=== PATIENT | female | born 1965 | race Caucasian/White ===

== ENCOUNTER 2020-03-07 14:03 | Emergency (ER) | payer MEDICARE ==
[~2020-03-07] VITALS: Ht 157.5 cm; Wt 59.0 kg
[~2020-03-07 14:03] MED LIST: BACTRIM DS TAB1 EACH PO; FLOMAX0.4 MG PO; GABAPENTIN100 MG PO; LEVOTHYROXINE0.2 M1 PO; NORCO 10-325 T1 EACH PO; PERCOCET 10-321 EACH PO; XANAX1 MG PO; ZOLOFT50 MG PO
[2020-03-07] MEDS ORDERED: CARVEDILOL12.5 MG PO (14:14)
[2020-03-07] MEDS ORDERED: NORVASC 2.5 MG2.5 M1 PO (14:15)
[2020-03-07] MEDS ORDERED: ALBUTEROL2.5 MG/0.1 INH (14:15)
[2020-03-07] MEDS ORDERED: HYDROXYZINE HCL25 M2 PO (14:15)
[2020-03-07] MEDS ORDERED: VOLTAREN GEL 1100 G1 TOP (16:10)
[2020-03-07] MEDS ORDERED: FLEXERIL PO (16:10)
[2020-03-07 16:21] VITALS: BP 156/73
== END 2020-03-07 16:21 | disposition home or self-care (01) ==
LOC: M.ERS 14:03
DX: S33.5XXA Sprain of ligaments of lumbar spine, initial encounter (principal); S29.012A Strain of muscle and tendon of back wall of thorax, initial encounter; I10 Essential (primary) hypertension; Z90.710 Acquired absence of both cervix and uterus; Z79.899 Other long term (current) drug therapy; X58.XXXA Exposure to other specified factors, initial encounter; Y93.89 Activity, other specified; Y92.89 Other specified places as the place of occurrence of the external cause; Y99.8 Other external cause status

== ENCOUNTER 2020-12-14 22:50 | Observation (INO) | payer OTHER, MEDICAID ==
[~2020-12-14] VITALS: Ht 157.5 cm; Wt 53.6 kg
[~2020-12-14 22:50] MED LIST changes: +ALBUTEROL2.5 MG/0.1 INH; +CARVEDILOL12.5 MG PO; +FLEXERIL PO; +HYDROXYZINE HCL25 M2 PO; -LEVOTHYROXINE0.2 M1 PO; +NORVASC 2.5 MG2.5 M1 PO; +SYNTHROID200 MCG PO; +VOLTAREN GEL 1100 G1 TOP
[2020-12-14 23:10] VITALS: BP 207/105
[2020-12-15 00:17] LABS: ABSOLUTE BASOPHILS 0.1 thou/uL (0.0-0.2); ABSOLUTE EOSINOPHILS 0.3 thou/uL (0.0-0.7); ABSOLUTE LYMPHOCYTES 1.4 thou/uL (0.8-5.3); ABSOLUTE MONOCYTES 0.5 thou/uL (0.0-1.2); ABSOLUTE NEUTROPHILS 3.5 thou/uL (1.6-8.1); BASOPHILS 1.1 %; EOSINOPHILS 5.3 %; HEMATOCRIT 34.7 % (37.0-47.0); LYMPHOCYTES 24.1 %; MCH 33.1 pg (26.0-34.0); MCHC 34.6 g/dL (28.0-37.0); MCV 95.6 fL (80.0-100.0); MONOCYTES 8.7 %; MPV 7.8 fl. (7.2-11.1); NUCLEATED RBCS 0 /100WBC; PLATELET COUNT* 254 thou/uL (150-400); POLYS 60.8 %; RBC 3.63 mil/uL (4.20-5.00); RDW-CV 13.2 % (10.5-14.5); WBC 5.8 thou/uL (4.0-11.0)
[2020-12-15 00:22] LABS: CALCIUM 9.4 mg/dL (8.5-10.1); CREATININE 7.1 mg/dL (0.6-1.3); POTASSIUM 4.4 mmol/L (3.5-5.1)
[2020-12-15 00:25] LABS: ALBUMIN 3.5 g/dL (3.4-5.0); MAGNESIUM 2.5 mg/dL (1.8-2.4); TOTAL BILIRUBIN 0.4 mg/dL (<0.1-1.0)
--- NOTE | 2020-12-15 00:30 | NUR ---
PATIENT APPEARS ANXIOUS SAYS "I CAN'T BREATHE" "I'M HOT" "I NEED A FAN" "I CAN'T STAY IN BED" "I NEED A WET TOWEL" "I'M COLD CAN I HAVE A BLANKET"--DR WALTER NOTIFIED "O" NOTED
[2020-12-15] MEDS ORDERED: DOXYCYCLINE 10100 MG PO (00:54)
[2020-12-15 01:28] LABS: APTT 27.7 Seconds (25.0-31.3); INR 0.9; PROTIME 10.1 Seconds (9.20-11.50)
[2020-12-15 05:05] VITALS: BP 156/76
[2020-12-15 05:40] VITALS: BP 138/68
[2020-12-15 06:05] VITALS: BP 138/68
--- NOTE | 2020-12-15 06:25 | NUR ---
PT ADMIT TO ROOM 208. UP WITH ASSIST. ALERT ORIENTED X 4. TECHNOLOGY APPLICATIONS CONSULTANT TRACING SR. HEPARIN QTT INFUSING AT 647 UNITS/HR TO RAC. L AV FISTULA +THRILL+BRUIT. ORIENTED TO ROOM.
[2020-12-15 08:00] VITALS: BP 161/89
--- NOTE | 2020-12-15 09:52 | EKG ---
[place] [address] ELECTROCARDIOGRAM REPORT Name: ACMILLE TURNER Room: [address]#: [id number] Admission: 12/15/20 Attend Phys: Peter Casillas, Discharge: Date of : 67 Date of Service: 12/14/20 2326 Report #: [id number] THIS REPORT FOR: //name// [facility] ED Test Date: 2020-12-14 Test Time: 23:26:07 Pat Name: CAMILLE TURNER Department: Room: [facility] Gender: F Scale Clerk: [place] : 1965 Requested By: Evelyn Ansari Order Number: [id number] MD: Sanjeev Clarke Measurements Intervals [place] Rate: 115 P: 75 [place]: 158 QRS: 35 QRSD: 77 T: 79 QT: 331 QTc: 458 Interpretive Statements Sinus tachycardia Left ventricular hypertrophy Probable anterior infarct, old Baseline wander in lead(s) I,II,III,aVR,aVL,V1,V2,V4 No previous ECG available for comparison Electronically Signed On 12-15-2020 9:51:53 CDT by Sanjeev Clarke [email or web address] <ELECTRONICALLY SIGNED> By: Sanjeev Clarke MD, FAC 12/15/20 0951 2326 2326 Sanjeev Clarke MD, FAC /EPI
--- NOTE | 2020-12-15 09:52 | EKG ---
[place] [address] ELECTROCARDIOGRAM REPORT Name: CAMILLE TURNER Room: [address]#: [id number] Admission: 12/15/20 Attend Phys: Peter Casillas, Discharge: Date of : 67 Date of Service: 12/15/20 0200 Report #: [id number] THIS REPORT FOR: //name// [facility] ED Test Date: 2020-12-15 Test Time: 02:00:23 Pat Name: CAMILLE TURNER Department: Room: [facility] Gender: F Finish Molder: [place] : 1965 Requested By: Evelyn Ansari Order Number: [id number] MD: Sanjeev Clarke Measurements Intervals [place] Rate: 82 P: 55 [place]: 149 QRS: 9 QRSD: 82 T: 82 QT: 423 QTc: 494 Interpretive Statements Sinus rhythm Left ventricular hypertrophy Anterior infarct, old Compared to ECG 12/14/2020 23:26:07 Sinus tachycardia no longer present Myocardial infarct finding still present Electronically Signed On 12-15-2020 9:52:42 CDT by Sanjeev Clarke [email or web address] <ELECTRONICALLY SIGNED> By: Sanjeev Clarke MD, [facility] 12/15/2052 9 9 Sanjeev Clarke MD, FAC /EPI
--- NOTE | 2020-12-15 10:40 | NUR ---
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 PT INDICATED SHE HAS NO DME. HAS O2 APPLIED, NOT HOME O2. PT INDICATED SHE GOES TO [facility] ON [address] ON AT 1030. PT STATED SHE DRIVES HERSELF TO DIALYSIS. PT DENIES HH OR SNF HH/CURRENT. PER DR GILBERT, NEPHROLOGY CONSULT. PT TO BE DIALYZED TODAY.CLINCIALS AND FLOW SHEET WILL NEED TO FAXED TO [facility] AT [place].
[2020-12-15 12:04] VITALS: BP 146/64
[2020-12-15 20:00] VITALS: BP 153/88
[2020-12-15] MEDS ORDERED: SILENOR6 MG PO (20:38)
[2020-12-16 00:57] VITALS: BP 175/88
[2020-12-16 04:00] VITALS: BP 117/99
[2020-12-16] MEDS ORDERED: NEPHRO-VITE RX1 TA1 PO (07:43)
[2020-12-16 08:00] VITALS: BP 144/84
--- NOTE | 2020-12-16 08:05 | NUR ---
ASSUMED CARE OF PT AFTER REPORT AT 1930. PT A&OX4. ANXIOUS. TEARFUL. VSS. PHYSICAL ASSESSMENT COMPLETED AND CHARTED. PT ON RA. PT TRACING SR/SB ON TELE. PT UPSTANDBY TO RESTROOM. MAINTAINED ON HEPARIN DRIP. FALL PRECAUTIONS IN PLACE. CALL LIGHT WITHIN REACH.
[2020-12-16 12:00] VITALS: BP 139/51
--- NOTE | 2020-12-16 13:51 | NUR ---
Pt discharged. CM faxed Pt's flowsheets, H&P and covid test to [facility], [phone]
--- NOTE | 2020-12-16 19:48 | NUR ---
PATIENT DISCHrged home , all discharge instructions and dischrge mediction completed . no issue voiced at this time.
--- NOTE | 2020-12-18 13:57 | CON ---
[address] [address] CONSULTATION Name: CAMILLE TURNER Room: [address] Yusuf Zamora#: [id number] Admission: 12/15/20 Attend Phys: Peter Casillas MD Discharge: 12/16/20 Date of : 67 Report #: [id number] THIS REPORT FOR: cc: Rinku Roberson MD, Bruce D. MD Arakelov, Alexandr V. MD ~ DATE OF CONSULTATION: 12/15/2020 REQUESTING PHYSICIAN: Dr. Higgins. REASON FOR CONSULTATION: Assist in providing dialysis. HISTORY OF PRESENT ILLNESS: The patient is a 55-year-old female with medical history significant for end-stage renal disease, hypertension, depression, presents to the hospital with complaints of not feeling well, having fever. She was negative for COVID. Her dialysis days are Tuesdays, and Saturdays. Last dialysis was on Monday. REVIEW OF SYSTEMS: Positive for generalized fatigue, fever and some vomiting. SOCIAL HISTORY: No alcohol abuse. She smokes daily. FAMILY HISTORY: Positive for hypertension. PHYSICAL EXAMINATION: NEUROLOGIC: Awake, alert, oriented. VITAL SIGNS: Reviewed. NECK: Supple. LUNGS: Clear. CARDIOVASCULAR: Regular rate. ABDOMEN: Soft. EXTREMITIES: Lower extremities, no edema. ASSESSMENT: 1. End-stage renal disease. 2. Hypertension. 3. Febrile illness. PLAN: We will continue dialysis on Monday, and Monday schedule [facility] [address] [place] [address] CONSULTATION Name: CAMILLE TURNER Room: [address] Yusuf Zamora#: [id number] Admission: 12/15/20 Attend Phys: Peter Casillas MD Discharge: 12/16/20 Date of : 67 Report #: [id number] following her labs and the rest of problems will be addressed by the primary team. <ELECTRONICALLY SIGNED> By: Alberto Doshi MD 12/18/20 1357 1208 1224Alexkelli Doshi MD /nt
== END 2020-12-16 12:26 | disposition home or self-care (01) ==
LOC: M.ERS 22:50 → M.TBA-ER 12-15 02:50 → M.2W 12-15 02:50
PROVIDERS: Personal Emergency Response Attendant; ADMIT Internal Medicine; ATTEND Internal Medicine
DX: R53.1 Weakness (principal); R50.9 Fever, unspecified; I12.0 Hypertensive chronic kidney disease with stage 5 chronic kidney disease or end stage renal disease; N18.6 End stage renal disease; Z20.822 Contact with and (suspected) exposure to COVID-19; E03.9 Hypothyroidism, unspecified; R77.8 Other specified abnormalities of plasma proteins; F41.9 Anxiety disorder, unspecified; F32.9 Major depressive disorder, single episode, unspecified; F17.210 Nicotine dependence, cigarettes, uncomplicated; Z79.899 Other long term (current) drug therapy; Z99.2 Dependence on renal dialysis